=== PATIENT | female | born 1960 | race Caucasian/White ===

== ENCOUNTER 2019-10-06 14:42 | Emergency (ER) | payer BC ==
[~2019-10-06] VITALS: Ht 177.8 cm; Wt 121.8 kg
[2019-10-06 14:50] VITALS: TEMP 97.8
[2019-10-06 14:58] LABS: COLLECTION METHOD CLEAN CATCH
[2019-10-06 15:04] LABS: PH 7 (5-8); SQUAMOUS EPITHELIAL None Seen /hpf; URINE APPEARANCE Clear; URINE BACTERIA Rare /hpf; URINE BILIRUBIN Negative (NEGATIVE); URINE BLOOD Negative (NEGATIVE); URINE COLOR Straw; URINE GLUCOSE Negative (NEGATIVE); URINE KETONE Negative (NEGATIVE); URINE LEUKOCYTE ESTERASE Negative (NEGATIVE); URINE NITRATE Negative (NEGATIVE); URINE PROTEIN(semi-quant) Negative (NEGATIVE); URINE RBC 0-2 /hpf; URINE UROBILINOGEN Negative (NEGATIVE)
[2019-10-06 15:05] VITALS: BP 114/74
[2019-10-06] MEDS ORDERED: ASPIRIN 81M81 MG/TA2 PO (15:05)
[2019-10-06] MEDS ORDERED: PYRIDIUM200 M1 PO (15:24)
[2019-10-06 15:50] VITALS: PULSE 60
== END 2019-10-06 15:50 | disposition home or self-care (01) ==
LOC: COL.ER 14:42
PROVIDERS: Emergency Medicine
DX: R30.0 Dysuria (principal); Z79.82 Long term (current) use of aspirin